=== PATIENT | female | born 1955 | race Caucasian/White ===

== ENCOUNTER 2022-12-19 13:05 | Outpatient (RCR) | payer OTHER, SELFPAY | END 2023-03-06 13:20 | disposition home or self-care (01) | LOC: PT 13:05 | PROVIDERS: PCP Family Medicine; Visit Provider Family Medicine | DX: M51.26 Other intervertebral disc displacement, lumbar region (principal) | CPT/HCPCS: 97113; 97162 ==

== ENCOUNTER 2023-03-19 12:38 | Outpatient (OUT) | payer OTHER, SELFPAY ==
--- NOTE | 2023-03-19 12:51 | MR_ITS ---
[address] [address] Patient Name: IVET MAGAÑA MRN: [id number] date: 1955 Sex: F Assigned Patient Location: MRI Current Patient Location: MRI Accession/Order Number: [id number] Exam Date: 03/19/2023 13:40 Report Date: 03/19/2023 18:03 At the request of: NON-STAFF PHYSICIAN Procedure: MR lumbar spine wo con EXAMINATION: MR lumbar spine wo con HISTORY: Lumbosacral Radiculopathy M54.17, Weakness Lower Extremities COMPARISON: No relevant comparison available. TECHNIQUE: A variety of imaging planes and parameters were utilized for visualization of suspected pathology. FINDINGS: For the purposes of numbering, sagittal T2 image # 7 extends from the T10 vertebral body superiorly to the S4 level inferiorly. PARASPINAL AREA: Normal with no visible mass. BONES: Dextrocurvature centered at L3 CORD/CAUDA EQUINA: Normal caliber, contour, and signal intensity. DISC LEVELS: 12-L1: Moderate degenerative disc disease is present without visible neural impingement. L1-L2: Moderate degenerative disc disease is present without visible neural impingement. L2-L3: Advanced degenerative disc disease is present. L3-L4: Disc desiccation. Mild diffuse disc bulge. Moderate to severe ligamentum flavum hypertrophy and facet osteoarthropathy. Moderate narrowing of the central canal. No foraminal stenosis. L4-L5: Disc collapse with endplate sclerosis. Moderate diffuse disc/osteophyte complex. Ligamentum flavum hypertrophy and facet osteophytes arthropathy. Mild narrowing of the central canal. Mild right and moderate to severe left foraminal stenosis L5-S1: Disc collapse with endplate sclerosis. Moderate diffuse disc/osteophyte complex and ligamentum flavum hypertrophy and facet osteoarthropathy. No central canal stenosis. Severe right and [id number] left foraminal stenosis MR/MR lumbar spine wo con IMPRESSION: Degenerative changes with central and foraminal stenosis at multiple levels as detailed above Electronically authenticated by: BOYD GARCIA Date: 03/19/2023 18:03
== END 2023-03-19 12:39 | disposition home or self-care (01) ==
PROVIDERS: PCP Family Medicine
DX: M54.17 Radiculopathy, lumbosacral region (principal); R29.898 Other symptoms and signs involving the musculoskeletal system
CPT/HCPCS: 72148

== ENCOUNTER 2024-12-27 12:44 | Outpatient (RCR) | payer OTHER, SELFPAY | END 2025-04-08 11:00 | disposition home or self-care (01) | LOC: PT 12:44 | PROVIDERS: PCP Family Medicine; Visit Provider Nurse Practitioner Family | DX: M48.062 Spinal stenosis, lumbar region with neurogenic claudication (principal); M54.16 Radiculopathy, lumbar region | CPT/HCPCS: 97113; 97161 ==

== ENCOUNTER 2025-04-27 13:58 | Outpatient (RCR) | payer OTHER, SELFPAY | END 2025-05-13 08:33 | disposition home or self-care (01) | LOC: PT 13:58 | PROVIDERS: PCP Family Medicine; Visit Provider Family Medicine | DX: M54.50 Low back pain, unspecified (principal) | CPT/HCPCS: 97113; 97163 ==